=== PATIENT | male | born 1945 | race Caucasian/White ===

== ENCOUNTER 2017-07-14 07:13 | Day surgery (SDC) | payer MEDICARE, BC ==
--- NOTE | 2017-07-08 03:39 | HP ---
PREOPERATIVE HISTORY AND PHYSICAL: DATE OF ADMISSION/SURGERY: 07/14/[address] - [facility] DATE OF OFFICE VISIT/ENCOUNTER: 06/24/17 ATTENDING SURGEON: Pepper Kebede MD * (DICTATED BY PRABHU RAMSAY) PRIMARY CARE PHYSICIAN: Dr. Abdi. RISK MANAGEMENT INTERN: Dr. Kitchen. PROCEDURE: Left thumb carpometacarpal arthroplasty. HISTORY OF PRESENT ILLNESS: This is a 72-year-old male with left thumb CMC arthritis. He has had pain that has progressively worsened over the past 2-1/2 years. It is very bothersome with any kind of gripping activities and interferes with his activities of daily life. He has had 2 cortisone injections to treat this problem in the past; however, his symptoms always returned and he is interested in this point at pursuing more definitive treatment in the form of a left thumb carpometacarpal arthroplasty. The patient has had cardiac history including cardiac catheterization and history of abnormal EKG. We will obtain clearance from his fractionation plant supervisor, Dr. Kitchen , prior to proceeding with surgery. PAST MEDICAL HISTORY: 1. Sleep apnea, the patient wears a CPAP. 2. BPH. 3. Hypercholesterolemia. 4. Glaucoma. 5. History of abnormal EKG. 6. Mitral valve disorder. PAST SURGICAL HISTORY: 1. Cardiac catheterization. 2. Left hand Dupuytren's excision. 3. TURP. CURRENT MEDICATIONS: 1. Aspirin 81 mg daily. 2. Citalopram hydrobromide 20 mg daily. 3. Simvastatin 10 mg q.h.s. 4. Xalatan 0.005% q.h.s. 1 drop each eye. ALLERGIES: No known drug allergies. FAMILY MEDICAL HISTORY: Emphysema and pancreatic cancer. SOCIAL HISTORY: The patient is a retired [employer]. He denies tobacco use and recreational drug use. He does not currently drink alcohol. He quit drinking approximately 28 years ago. REVIEW OF SYSTEMS: General: Negative for fevers, chills, or night sweats. No known anesthesia problems. HEENT: Negative for headache, lightheadedness, or syncopal episodes. Integumentary: Negative for abrasions, lesions, or open wounds. Cardiothoracic: Negative for hypertension, chest pain, palpitations, or edema. Pulmonary: Negative for shortness of breath with exertion, chronic cough, or COPD. GI: Negative for nausea, vomiting, diarrhea, constipation, or GERD. : Negative for nocturia, urinary frequency, urgency, history of UTIs, or kidney problems. Musculoskeletal: Positive for current complaint. Negative for chronic or intermittent back pain or history of fractures. Neurologic: Negative for paresthesias, numbness, history of seizures, stroke or epilepsy. Endocrine: Negative for diabetes or thyroid issues. Hematologic: Negative for easy bruising, anemia, excessive bleeding, or history of DVT. Infectious Disease: Negative for history of MRSA, hepatitis C, or HIV. PHYSICAL EXAMINATION GENERAL: Well-developed, well-nourished, 72-year-old male, in no acute distress. VITAL SIGNS: Height 5 feet 7 inches, weight 229 pounds, pulse rate 64, blood pressure 116/82. HEENT: Normocephalic, atraumatic. Pupils are equal, round, and reactive to light and accommodation. Extraocular movements are intact. Throat is clear. NECK: No palpable lymph nodes. PULMONARY: Lungs are clear to auscultation bilaterally. No wheezes, rales, or rhonchi. CARDIOVASCULAR: Regular rate and rhythm. S1 and S2. No murmurs, rubs, or gallops. No edema. ABDOMEN: Positive bowel sounds, soft, nontender. NEUROLOGICAL: Alert and oriented x3. Cranial nerves II through XII are intact. Sensation is intact to light touch. MUSCULOSKELETAL: On exam of his left hand, he has mild swelling of his thumb CMC joint. There is tenderness to palpation at the joint. Decreased range of motion in full opposition. Positive grind test. IMAGING STUDIES: X-rays of the left thumb shows severe degenerative arthritis of the CMC joint. IMPRESSION: Left thumb carpometacarpal joint arthritis. PLAN: The patient is scheduled to undergo a left thumb carpometacarpal joint arthroplasty with Dr. Kebede on 07/14/17. He will return to the office in 10 to 14 days postop for followup and suture removal. A prescription for [place] was e - scribed to the patient's pharmacy for postoperative pain management. He will receive clearance prior to proceeding with surgery from his fractionation plant supervisor, Dr. Kitchen. PRABHU RAMSAY [id number]/[facility] #: [id number] MTDJose Miguel
[~2017-07-14 07:13] MED LIST: Buffered Lidocaine 0.9% SYRIN* 5 ML/SYR SYRINGE INTRADERM ONE; DiMENhydriNATE IV* 50 MG/ML VIAL IV PUSH PRN; Famotidine IV* 10 MG/ML 2 ML (20 mg) IV ONE; Morphine INJ* 2 MG/ML 1 ML CARPUJECT IV PRN; PROCHLORPERAZINE INJ 5 MG/ML 2 ML VIAL IV PRN; Scopolamine 1.5 mg* PATCH TRANSDERM PRN; fentaNYL* 50 MCG/ML 2 ML VIAL (100 MCG VIAL) IV PRN; oxyCODONE/Acetamin 5/325 MG* TAB PO PRN
[2017-07-14] MEDS ORDERED: Famotidine IV* 10 MG/ML 2 ML (20 mg) ONE (07:21)
[2017-07-14] MEDS ORDERED: ceFAZolin 2 GM PREMIX (*) 2 GM/50 ML BAG IVPB ONE (07:21)
[2017-07-14] MEDS ORDERED: KETAMINE HCL* 50 MG/ML 10 ML VIAL ONE (07:58)
[2017-07-14] MEDS ORDERED: fentaNYL* 50 MCG/ML 2 ML VIAL (100 MCG VIAL) ONE (07:58)
[2017-07-14] MEDS ORDERED: Midazolam* 1 MG/ML 5 ML VIAL (5 MG) ONE (07:58)
[2017-07-14] MEDS ORDERED: Bupivacaine 0.5% SDV PF* 30 ML VIAL ONE (08:26)
[2017-07-14] MEDS ORDERED: Lidocaine 1% INJ* 10 MG/ML 30 ML SDV ONE (08:32)
[2017-07-14] MEDS ORDERED: Ondansetron INJ* 2 MG/ML VIAL ONE (09:11)
[2017-07-14] MEDS ORDERED: EPHEDrine (Pressors)* 50 MG/ML VIAL ONE (09:11)
[2017-07-14] MEDS ORDERED: Glycopyrrolate IV* 0.2 MG/ML 1 ML VIAL ONE (09:11)
[2017-07-14] MEDS ORDERED: Dexamethasone IV* 4 MG/ML 1 ML (4 MG) ONE (09:11)
[2017-07-14] MEDS ORDERED: Edrophonium Chloride* 10 MG/ML 15 ML VIAL ONE (09:11)
[2017-07-14] MEDS ORDERED: Phenylephrine IV* 40 MCG/ML 10 ML SYRINGE ONE (09:11)
[2017-07-14] MEDS ORDERED: Flumazenil* 0.1 MG/ML 5 ML MDV ONE (09:28)
--- NOTE | 2017-07-14 10:06 | OP ---
DATE OF OPERATION: 07/14/2017 [facility] DATE OF : 1945. SURGEON: Dr. Pepper Kebede. BLUEPRINT MACHINE OPERATOR: PRABHU Mcgregor. ANESTHESIOLOGIST: Jamar Farr MD ANESTHESIA: General. PRE-OP DIAGNOSIS: Left thumb CMC arthritis. POST-OP DIAGNOSIS: Left thumb CMC arthritis. OPERATIVE PROCEDURE: Left thumb carpometacarpal arthroplasty. ESTIMATED BLOOD LOSS: Zero. TOURNIQUET TIME: About 30 minutes. INDICATION FOR PROCEDURE: Venkata is a 72-year-old man with painful arthritis at the base of this left thumb. He presents for CMC arthroplasty. DESCRIPTION OF PROCEDURE: The patient was brought to the operating room, was given a general anesthetic and placed in the supine position on the operating table with a tourniquet around his left forearm. The skin of his left hand and forearm was prepped and draped in the usual sterile fashion. The hand and forearm were exsanguinated and tourniquet elevated to 250 mmHg. A curvilinear incision was made centered at the CMC joint of the left thumb. We dissected bluntly through the subcutaneous tissue. Branches of the radial accessory nerve and the first compartment tendons were located and then retracted by the financial planning assistant, PRABHU Mcgregor, who was essential for completion of the case. The radial artery was then carefully dissected off of the CMC joint capsule and again retracted by the financial planning assistant. A distally based U- shaped flap of the CMC joint capsule was made and subperiosteally elevated off of the trapezium. The trapezium was then removed in its entirety and the wound was irrigated. The CMC joint capsule was secured to the FCR tendon with 4-0 nylon suture and then the remainder of the capsule was closed with 4-0 nylon suture. The wound was again irrigated and the EPB tendon was secured to the APL tendon to remove the hyperextension deformity of the MP joint. The skin edges were reapproximated with 4-0 nylon suture. The wound was dressed in Xeroform, 4 x 4, Webril, and a thumb splint. The patient tolerated the procedure well and was brought to the recovery room in good condition. [id number]/[facility] #: [id number] [facility] HOSPITALJose Miguel
[2017-07-14 10:19] VITALS: BP 115/74
[2017-07-17] MEDS ORDERED: Scopolamine PATCH Remove* 1 NOTE MISC PATCH OFF ONE (05:46)
== END 2017-07-14 10:19 | disposition home or self-care (01) ==
LOC: OREAST 07:13
PROVIDERS: ATTEND Orthopaedic Surgery
DX: M18.12 Unilateral primary osteoarthritis of first carpometacarpal joint, left hand (principal); G47.33 Obstructive sleep apnea (adult) (pediatric); R94.31 Abnormal electrocardiogram [ECG] [EKG]; I34.8 Other nonrheumatic mitral valve disorders; H40.9 Unspecified glaucoma; E78.00 Pure hypercholesterolemia, unspecified
CPT/HCPCS: 88304; 88311; J0690; J1100; J2001; J2250; J2405; J3010

== ENCOUNTER 2019-09-21 09:53 | Day surgery (SDC) | payer MEDICARE, BC ==
[~2019-09-21 09:53] MED LIST changes: -Buffered Lidocaine 0.9% SYRIN* 5 ML/SYR SYRINGE INTRADERM ONE; +Buffered Lidocaine 1% SYRIN 1 ml INTRADERM ONE; -DiMENhydriNATE IV* 50 MG/ML VIAL IV PUSH PRN; -Famotidine IV* 10 MG/ML 2 ML (20 mg) IV ONE; -Morphine INJ* 2 MG/ML 1 ML CARPUJECT IV PRN; -PROCHLORPERAZINE INJ 5 MG/ML 2 ML VIAL IV PRN; -Scopolamine 1.5 mg* PATCH TRANSDERM PRN; -fentaNYL* 50 MCG/ML 2 ML VIAL (100 MCG VIAL) IV PRN; -oxyCODONE/Acetamin 5/325 MG* TAB PO PRN
[2019-09-21] MEDS ORDERED: Midazolam 2 mg/2 ml VIAL 1 mg/ml 2 ml VIAL (2 mg) ONE (11:42)
[2019-09-21] MEDS ORDERED: fentaNYL 100 mcg/2 ml 50 MCG/ML VIAL ONE (12:18)
[2019-09-21 13:00] VITALS: BP 104/74
[2019-09-21] MEDS ORDERED: Neomycin/Polymy/Dex OPTH.SUSP MAXITROL 0.1% 5 ML ONE (13:43)
[2019-09-21] MEDS ORDERED: Ketorolac 0.5% OPHTH (NF) 0.5 % 5 ML BTL ONE (13:43)
[2019-09-21] MEDS ORDERED: Povidone Iodine 5% OPTH 30 ML BTL ONE (13:43)
[2019-09-21] MEDS ORDERED: Proparacaine 0.5% OPHTH.SOL 15 ML BTL ONE (13:43)
[2019-09-21] MEDS ORDERED: Phenylephrine 2.5% OPHTH SOL 2 ml BTL ONE (13:43)
[2019-09-21] MEDS ORDERED: Lidocaine 1% MPF 5 ML VIAL ONE (13:43)
[2019-09-21] MEDS ORDERED: Lidocaine 2% w/ EPI 1:200,000 MPF 20 ML SDV VIAL ONE (13:43)
[2019-09-21] MEDS ORDERED: Cyclopentolate 1% OPTH.SOL 2 ML BTL ONE (13:43)
== END 2019-09-21 13:15 | disposition home or self-care (01) ==
LOC: OREAST 09:53
PROVIDERS: ATTEND Specialist
DX: H25.11 Age-related nuclear cataract, right eye (principal); H40.1111 Primary open-angle glaucoma, right eye, mild stage; H43.813 Vitreous degeneration, bilateral; H04.123 Dry eye syndrome of bilateral lacrimal glands; G47.33 Obstructive sleep apnea (adult) (pediatric); N40.0 Benign prostatic hyperplasia without lower urinary tract symptoms; F32.9 Major depressive disorder, single episode, unspecified; E78.00 Pure hypercholesterolemia, unspecified

== ENCOUNTER 2019-09-28 08:43 | Day surgery (SDC) | payer MEDICARE, BC ==
[~2019-09-28 08:43] MED LIST changes: +Acetaminophen TAB* 325 MG PO PRN; -Buffered Lidocaine 1% SYRIN 1 ml INTRADERM ONE; +Buffered Lidocaine 1% SYRIN* 1 ML/SYRINGE INTRADERM ONE; +KETAMINE HCL* 50 MG/ML 10 ML VIAL ONE; +Midazolam* 1 MG/ML 5 ML VIAL (5 MG) ONE; +Rocuronium* 10 MG/ML VIAL ONE; +fentaNYL* 50 MCG/ML 2 ML VIAL (100 MCG VIAL) ONE
[2019-09-28] MEDS ORDERED: Midazolam* 1 MG/ML 2 ML VIAL (2 MG) ONE (10:36)
[2019-09-28] MEDS ORDERED: fentaNYL* 50 MCG/ML 2 ML VIAL (100 MCG VIAL) ONE (10:36)
[2019-09-28 11:31] VITALS: BP 110/77
--- NOTE | 2019-09-28 12:21 | OP ---
DATE OF OPERATION: 09/28/2019. DATE OF : 1945. SURGEON: Leroy Escobedo M.D. PREOPERATIVE DIAGNOSIS: Cataract and glaucoma left eye. POSTOPERATIVE DIAGNOSIS: Cataract and glaucoma left eye. OPERATIVE PROCEDURE: Extracapsular cataract extraction with intraocular lens implant and iStent left eye. PROCEDURE: The patient was brought to the operating room after being given 1/2% Alcaine with epineph rine drops in the preoperative area. The eye was prepped and draped in the usual sterile fashion. S terile drape and eyelid speculum were placed. Again, topical 1/2% Alcaine with epinephrine was given . A paracentesis incision was made at the 3 o'clock position with the No.75 blade. Clear cornea inc ision 2.2 x 2.2-mm was created at the 6 o'clock position starting at the anterior limbus using the 2. 2-mm keratome. The anterior chamber was irrigated with 0.4 mL of 1% non-preservative intracameral li docaine and filled with DisCoVisc. A capsulorrhexis was completed using the cystotome and the Utrata forceps. Hydrodissection was performed with balanced salt solution. The lens nucleus was removed wi th the Phacoemulsification handpiece without incident. Cortex was removed with the irrigation-aspira tion handpiece. The capsular bag was re-inflated using DisCoVisc and an SN6AT3 20.5 implant was inse rted with the shooter and oriented to the 154 degree meridian. Horizontal reference arredondo were made with the patient seated in the preoperative area. All measurements were confirmed with ORA. This was followed by iStent inject injected into the 2 and 4 o'clock positions with its shooter without diffi culty. The irrigation-aspiration handpiece was used to remove all residual DisCoVisc. The eye was r efilled with balanced salt solution and the wound checked and found to be watertight. Topical Maxitr ol drops were given. [id number]/[facility] #: [id number]
[2019-09-28] MEDS ORDERED: Neomycin/Polymy/Dex OPTH.SUSP* MAXITROL 0.1% 5 ML ONE (13:23)
[2019-09-28] MEDS ORDERED: Povidone Iodine 5% OPTH* 30 ML BTL ONE (13:23)
[2019-09-28] MEDS ORDERED: Proparacaine 0.5% OPHTH.SOL* 15 ML BTL ONE (13:23)
[2019-09-28] MEDS ORDERED: acetaZOLAMIDE TAB* 250 MG ONE (13:23)
[2019-09-28] MEDS ORDERED: Lidocaine 2% w/ EPI 1:200,000* 20 ML SDV VIAL ONE (13:23)
[2019-09-28] MEDS ORDERED: Phenylephrine OPHTH SOL 2.5%* 2 ML ONE (13:23)
[2019-09-28] MEDS ORDERED: Ketorolac 0.5% OPHTH (NF) 0.5 % 5 ML BTL ONE (13:23)
[2019-09-28] MEDS ORDERED: Cyclopentolate 1% OPTH.SOL* 2 ML BTL ONE (13:23)
[2019-09-28] MEDS ORDERED: Lidocaine 1% MPF ** 5 ML VIAL ONE (13:23)
== END 2019-09-28 11:44 | disposition home or self-care (01) ==
LOC: OREAST 08:43
PROVIDERS: ATTEND Specialist
DX: H25.12 Age-related nuclear cataract, left eye (principal); H40.1121 Primary open-angle glaucoma, left eye, mild stage; H43.813 Vitreous degeneration, bilateral; H04.123 Dry eye syndrome of bilateral lacrimal glands; G47.33 Obstructive sleep apnea (adult) (pediatric); N40.0 Benign prostatic hyperplasia without lower urinary tract symptoms; E78.00 Pure hypercholesterolemia, unspecified; F32.9 Major depressive disorder, single episode, unspecified; E78.5 Hyperlipidemia, unspecified
CPT/HCPCS: A9270-GY; C1783; J2250; J3010; V2787